=== PATIENT | male | born 1950 | race Caucasian/White ===

== ENCOUNTER → 2016-08-05 08:46 | Outpatient (CLI) | payer MEDICARE, OTHER ==
--- NOTE | 2016-08-05 15:01 | NUR ---
Nutrition education for high glucose: Pt reports drinking a lot of sweet tea and skipping meals. Pt also reports eating a lot of CHO at meals. Pt works in his yard and garden a lot during the summer. Reviewed CHO containing foods and the affect CHO have on glucose. Stressed the importance of eating meals at consistent times every day to keep glucose under good control. Advised pt to drink water to quench thirst and cut back or eliminate sweet tea. Discussed the importance of physical activity. Reviewed complication of uncontrolled diabetes. Reviewed sample menus with emphasis on CHO. Reviewed portion sizes of common CHO foods. Ansered pts questions. Provided pt with printed diet information. Pt with good understanding of information provided. RDN feels pt will be compliant with information provided. Discussed the importance of monitoring blood glucose levels to determine if interventions are working. Advised pt to purchase glucometer from [employer] and keep track of glucose numbers. Reviewed appropriate glucose numbers for before meals, fasting and two hours after meals. Pt again with good understanding of information provided. Pts , who is present, is a retired RN. Provided pt with RDN name and phone number. RDN will be available if needed. Thank you for the consult.
== END | disposition home or self-care (01) ==
LOC: D.FANS 08:46
DX: R73.01 Impaired fasting glucose (principal)